=== PATIENT | male | born 1975 | race Caucasian/White ===

== ENCOUNTER 2016-11-08 10:31 | Inpatient (IN) | payer OTHER ==
[~2016-11-08] VITALS: Ht 182.9 cm; Wt 97.8 kg
[2016-11-08] VITALS (10 sets, daily range): BP systolic 128–169; BP diastolic 76–90; PULSE 58–97; RESP 12–18; O2SAT 97–100
[2016-11-08] MEDS ORDERED: Promethazine 25 mg/mL Inj ONE (10:56)
[2016-11-08] MEDS ORDERED: HYDROmorphone 1 mg/mL Inj IVPUSH ONE ×2 (11:15→11:50)
[2016-11-08 11:16] LABS: BASOPHILS % (AUTO) 0.4 % (0-3); EOSINOPHILS % (AUTO) 0.1 % (0-5); MONOCYTES % (AUTO) 4.4 % (4-12); Mean Corpuscular Volume 83.6 fL (81-100); NEUTROPHILS % (AUTO) 83.8 % (40-74); Platelet Count 325 bil/L (150-400)
--- NOTE | 2016-11-08 11:31 | ED.REPORT ---
HPI-Abd Pain M 40 and Over Date of Service Nov 08, 2016 ED Provider: Ronny Gunn MD Pt is a generally healthy 41 y/o male presenting to the ED c/o N/V onset 4 days ago. He c/o associated mild watery diarrhea, periumbilical abdominal pain/ pressure for 2 days, R-sided testicular pain. The patient had somewhat similar symptoms previously when he had cholecystitis and therefore he had a cholecystectomy. He denies recent out of country travel. Pt denies fever, chills , bloody stools, any other symptoms. He denies alcohol/drug history. Nursing Notes Stated Complaint: VOMITING/DIARRHEA Chief Complaint: Male Abdominal Pain Nursing Notes Reviewed: Yes Allergies: Coded Allergies: No Known Allergies (Unverified Allergy, Unknown, 11/08/16) No Active Prescriptions or Reported Meds General Time Seen by MD: 10:50 Chief Complaint Other (nvd) Hx Obtained From: Patient Arrived By: Walk-in Sudden in Onset?: No Onset Occurred: 4 days ago Symptom Duration: Since onset Progression since Onset: Constant Location: : Periumbilical Quality: Painful, Pressure Radiation: : Does not radiate Severity: Current: Moderate Severity: Maximum: Moderate Recent Healthcare: No recent doctor visit, No recent hospitalization Similar Sx Previous: Yes Past Medical History Past Medical History Scoliosis s/p surgical repair Past Surgical History Cholecystectomy Back surgery Family History Denies Smoking History Current Every Day Smoker, Light Tobacco Smoker Social History Alcohol Use: Denies alcohol use Drug Use: Denies drug use Ambulatory Status Independent Review of Systems Constitutional: Denies: Chills, Fever Respiratory: Denies: Non-productive cough, Shortness of breath Cardiovascular: Denies: Chest pain GI: Reports: Abdominal pain, Diarrhea, Nausea, Vomiting, Denies: Bloody/tarry stool Complete sys rev & neg: except as marked. Physical Exam Nursing note and vitals reviewed. Constitutional: Uncomfortable appearing young male lying in bed. All developed. Head: Normocephalic and atraumatic. Mouth/Throat: Oropharynx is clear. Mucous membranes dry. No oropharyngeal exudate. Eyes: EOM are normal. Pupils are equal, round, and reactive to light. Neck: Supple, no tracheal deviation. Cardiovascular: Normal rate, regular rhythm. Equal and intact distal pulses throughout. Pulmonary/Chest: Effort normal and breath sounds normal. No respiratory distress. Abdominal: Soft. No distension. Diffuse lower abdominal tenderness; no rebound or guarding. Bowel sounds present. : Testicles appear normal. No testicular tenderness. Cremasteric reflex intact. Musculoskeletal: Range of motion grossly intact, moving all extremities. No edema or tenderness appreciated. Neurological: AOx3. Grossly nonfocal exam. Strength and sensation intact and equal to bilateral upper and lower extremities. Skin: Warm and dry, no rashes or pallor appreciated. Psychiatric: Appropriate mood and affect. Behavior appears normal. Initial Vital Signs Vital Signs (First) Date Time Temp Pulse Resp B/P Pulse Ox O2 Delivery O2 Flow Rate FiO2 11/08/16 10:40 69 12 143/84 99 Room Air Initial VS: Reviewed, Vital signs normal Interpretation & Diagnostics Interpretation & Diagnostics: US testicular: IMPRESSION: 1. No visualized torsion at the time of examination. Intermittent torsion cannot be definitively excluded. 2. No visualized epididymitis. Dictated by: Marissa Stacy M.D. on 11/08/2016 at 16:49 Approved by: Marissa Stacy M.D. on 11/08/2016 at 16:50 Lab Results Interpretation Result Diagram: 11/10/16 1018 11/09/16 0920 Test 11/08/16 11:00 11/08/16 11:57 11/08/16 12:49 Magnesium Level 2.3mg/dL (1.6-2.6) Total Bilirubin 0.5mg/dL (0.0-1.2) Aspartate Amino Transf (AST/SGOT) 19U/L (0-50) Alanine Aminotransferase (ALT/SGPT) 22U/L (0-44) Alkaline Phosphatase 65U/L (25-150) Total Protein 6.9g/dL (6.4-8.4) Albumin 4.2g/dL (3.4-5.0) Lipase 28U/L (13-60) Urine Color Yellow (YELLOW) Urine Appearance Clear (CLEAR,HAZY) Urine pH 7.5 (5.0-8.0) Urine Specific [place] 1.020 (1.003-1.035) Urine Protein Negativemg/dL (NEG,TRACE) Urine Glucose (UA) Negativemg/dL (NEGATIVE) Urine Ketones Negativemg/dL (NEGATIVE) Urine Occult Blood Negative (NEGATIVE) Urine Nitrite Negative (NEGATIVE) Urine Bilirubin Negative (NEGATIVE) Urine Urobilinogen Normalmg/dL (NORMAL) Urine Leukocyte Esterase Negative (NEGATIVE) Urine RBC 0-2/hpf (0-2) Urine WBC 0-5/hpf (0-5) Urine Epithelial Cells Few/hpf (NONE-MOD) Urine Crystals Amorphous phosphates Urine Bacteria None/hpf (NONE-FEW) Urine Hyaline Casts None/lpf (NONE) Urine Granular Casts None seen (NONE SEEN) Urine Waxy Casts None seen (NONE SEEN) Urine Red Blood Cell Casts None seen (NONE SEEN) Urine White Blood Cell Casts None seen (NONE SEEN) Urine Mucus None seen (None Seen) Urine Trichomonas None seen (NONE SEEN) Urine Yeast None (NONE SEEN) Urinalysis Comment None Urine Culture Reflexed Not indicated Lactic Acid Level 1.0mmol/L (0.4-2.0) CT Abd / Pelvis Interpretation IMPRESSION: 1. No acute intra-abdominal or pelvic process. 2. Hepatic steatosis. 3. Cholecystectomy. Dictated by: Marissa Stacy M.D. on 11/08/2016 at 13:41 Approved by: Marissa Stacy M.D. on 11/08/2016 at 13:43 Study type: Abdominal CT IV contrast Interpretation / Wet Read by: Interpret - Radiologist Re-Eval/Medical Decision Med Decision/Clinical Course In summary, 41-year-old male presenting to the ED for evaluation of intractable nausea and vomiting over the past several days associated with lower abdominal pain. Differential is broad and includes appendicitis, small bowel obstruction , gastroenteritis, testicular torsion, etc. Also considered cannabis hyperemesis syndrome, however patient states that he does not use cannabis. Initial laboratory workup notable for a white blood cell count of 10.8 with 83% neutrophils, CMP grossly within normal limits, UA negative. Testicular ultrasound negative for torsion at the time of the examination. CT abdomen and pelvis demonstrates no acute intra-abdominal or pelvic process. Patient given multiple medications in an attempt to alleviate his intractable vomiting, including Zofran, Ativan, Phenergan. Also given Dilaudid and low-dose, subdissociative ketamine for his pain. Reassessed multiple times here in the emergency department with no improvement in his symptoms and he is unable to tolerate by mouth. Given this, as well as no clear etiology for his symptoms, plan admission for further evaluation and management. Patient agreeable with the plan as stated, no further questions. Time of Eval: 15:00 Re-Evaluation/Progress Note: Still vomiting. Time of Eval: 16:57 Re-Evaluation/Progress Note: Pt rechecked. Nausea and vomiting continues. Informed pt of need for admission. Pt understands and agrees with plan for admission. All questions addressed. Consultation : Referral / Consult Name: Luisito Gipson MD Consulted With: Hospitalist Call Returned at: 17:12 Garage Attendant: Will see patient, Agrees with eval, Agrees with plan, Accepts admit Counseled Regarding: Diagnosis, Lab results, Need for admission Discharge & Departure Primary Impression: Intractable nausea and vomiting Vomiting type: unspecified Qualified Code: R11.2 - Nausea with vomiting, unspecified Disposition: ADMITTED TO HOSPITAL Vital Signs - All Vital Signs Date Time Temp Pulse Resp B/P Pulse Ox O2 Delivery O2 Flow Rate FiO2 11/08/16 13:29 97 14 97 Room Air 11/08/16 13:22 71 14 149/76 97 Room Air 11/08/16 12:04 67 12 128/78 99 Room Air 11/08/16 10:40 69 12 143/84 99 Room Air )( All Prior VS Reviewed: Yes Condition: Stable Referrals: Josias Joseph MD (PCP) Scribe Attestation Portions of this note were transcribed by Sadi Alves. I, Dr. Gunn personally performed the history, physical exam and medical decision-making; I reviewed and confirmed the accuracy of the information in the transcribed note. Signed by Raisa English, 11/08/16 - 1200 copies to: Josias Joseph MD, William B MD Nov 08, 2016 11:31 SADI ALVES Nov 08, 2016 11:33 None seen (NONE SEEN) Urine Yeast None (NONE SEEN) Urinalysis Comment None Urine Culture Reflexed Not indicated Lactic Acid Level 1.0mmol/L (0.4-2.0) CT Abd / Pelvis Interpretation IMPRESSION: 1. No acute intra-abdominal or pelvic process. 2. Hepatic steatosis. 3. Cholecystectomy. Dictated by: Marissa Stacy M.D. on 11/08/2016 at 13:41 Approved by: Marissa Stacy M.D. on 11/08/2016 at 13:43 Study type: Abdominal CT IV contrast Interpretation / Wet Read by: Interpret - Radiologist Re-Eval/Medical Decision Med Decision/Clinical Course Urine drug screen positive for: methamphetamine, opiates CBC: WBC 10.8 with 83% neutrophils CMP: grossly WNL UA: negative Testicular US: IMPRESSION: 1. No visualized torsion at the time of examination. Intermittent torsion cannot be definitively excluded. 2. No visualized epididymitis. CT abd/pelvis: IMPRESSION: 1. No acute intra-abdominal or pelvic process. 2. Hepatic steatosis. 3. Cholecystectomy. Time of Eval: 15:00 Re-Evaluation/Progress Note: Still vomiting. Time of Eval: 16:57 Re-Evaluation/Progress Note: Pt rechecked. Nausea and vomiting continues. Informed pt of need for admission. Pt understands and agrees with plan for admission. All questions addressed. Consultation : Referral / Consult Name: Luisito Gipson MD Consulted With: Hospitalist Call Returned at: 17:12 Garage Attendant: Will see patient, Agrees with eval, Agrees with plan, Accepts admit Counseled Regarding: Diagnosis, Lab results, Need for admission Discharge & Departure Primary Impression: Intractable nausea and vomiting Vomiting type: unspecified Qualified Code: R11.2 - Nausea with vomiting, unspecified Disposition: ADMITTED TO HOSPITAL Vital Signs - All Vital Signs Date Time Temp Pulse Resp B/P Pulse Ox O2 Delivery O2 Flow Rate FiO2 11/08/16 13:29 97 14 97 Room Air 11/08/16 13:22 71 14 149/76 97 Room Air 11/08/16 12:04 67 12 128/78 99 Room Air 11/08/16 10:40 69 12 143/84 99 Room Air )( All Prior VS Reviewed: Yes Condition: Stable Referrals: Josias Joseph MD (PCP) Raisa Attestation Portions of this note were transcribed by Sadi Alves. I, Dr. Gunn personally performed the history, physical exam and medical decision-making; I reviewed and confirmed the accuracy of the information in the transcribed note. Signed by Raisa English, 11/08/16 - 1200 copies to: Josias Joseph MD, William B MD Nov 08, 2016 11:31 SADI ALVES Nov 08, 2016 11:33
[2016-11-08] MEDS ORDERED: Lactated Ringer's 1,000 ML IV ONE (11:50)
[2016-11-08 11:53] LABS: Magnesium 2.3 mg/dL (1.6-2.6)
[2016-11-08 12:40] LABS: APPEARANCE,URINE CLEAR (CLEAR,HAZY); COLOR,URINE YELLOW (YELLOW); OCCULT BLOOD,URINE NEGATIVE (NEGATIVE); PH,URINE 7.5 (5.0-8.0); UROBILINOGEN,URINE NORMAL (NORMAL)
[2016-11-08] MEDS ORDERED: Ondansetron 2 mg/mL 2 mL Inj ONE (13:04)
[2016-11-08] MEDS ORDERED: Ketamine 10 mg/mL 20 mL Inj IV ONE (13:10)
--- NOTE | 2016-11-08 13:45 | DRSVH ---
PROCEDURE: CT ABDOMEN AND PELVIS WITH CONTRAST ([id number]) INDICATIONS: intractable vomiting, abd pain TECHNIQUE: After the administration of intravenous contrast, 5 mm thick sections acquired from the diaphragm to the symphysis. 5 mm coronal and sagittal reformats were acquired. For radiation dose reduction, the following was used: automated exposure control, adjustment of mA and/or kV according to patient siz e. COMPARISON: None. FINDINGS: Image quality: Excellent. ABDOMEN: Lung bases: Lung bases are clear. Heart size is normal. Solid organs: Liver and spleen are normal in size and enhancement. Mild hepatic steatosis is present . Gallbladder has been removed. Biliary system is non dilated. Pancreas enhances normally. No adr enal nodules. Kidneys demonstrate normal size and enhancement, without hydronephrosis. Peritoneum and bowel: Bowel loops demonstrate normal wall thickness and caliber. No free fluid or a ir. Nodes and vessels: No retroperitoneal or mesenteric adenopathy by size criteria. Aorta and inferior vena cava are normal in size. Miscellaneous: No ventral hernias. Mild hernia with distal esophageal thickening. Thoracolumbar fix ation rods are present. PELVIS: Genitourinary: Bladder wall thickness is normal. Miscellaneous: No inguinal hernias or adenopathy. Bones: No suspicious bony lesions. No vertebral body compression fractures. IMPRESSION: 1. No acute intra-abdominal or pelvic process. 2. Hepatic steatosis. 3. Cholecystectomy. Dictated by: Marissa Stacy M.D. on 11/08/2016 at 13:41 Approved by: Marissa Stacy M.D. on 11/08/2016 at 13:43
[2016-11-08] MEDS ORDERED: Promethazine Inj 12.5 MG in Dextrose 5%-Pha MIX 50 ML IV ONE (14:30)
--- NOTE | 2016-11-08 16:52 | DRSVH ---
PROCEDURE: US TESTICULAR SONOGRAM WITH DOPPLER INDICATIONS: eval torsion, epidydimitis, etc TECHNIQUE: Real-time scanning was performed of the scrotum and testicles, with image documentation. Color and p ulse Doppler interrogation was performed of both testicles. COMPARISON: None. FINDINGS: Right: Testicle is normal in size at 2.0 x 3.8 x 4.7 cm, and homogenous in echotexture. Epididymis is normal in overall size and morphology. No hydrocele or varicoceles. Overlying scrotal skin is no rmal in thickness. Left: Testicle is normal in size at 2.5 x 4.0 x 1.6 cm, and homogeneous in echotexture. Epididymis is normal in overall size and morphology. No hydrocele or varicoceles. Overlying scrotal skin is no rmal in thickness. Doppler: Color and pulse Doppler demonstrate normal and symmetric arterial flow in both testicles. IMPRESSION: 1. No visualized torsion at the time of examination. Intermittent torsion cannot be definitively excl uded. 2. No visualized epididymitis. Dictated by: Marissa Stacy M.D. on 11/08/2016 at 16:49 Approved by: Marissa Stacy M.D. on 11/08/2016 at 16:50
[2016-11-08] MEDS ORDERED: Polyethylene Glycol (PEG) 17 Gm Powder PO PRN (17:45)
[2016-11-08] MEDS ORDERED: 0.9% Sodium Chloride 1,000 ML IV ONE (17:45)
--- NOTE | 2016-11-08 19:25 | PCM.HPMED ---
Subjective Date of Service Nov 08, 2016 Primary Provider: Admitting Physician: Primary Care Physician: Josias Joseph MD Attending Physician: Chief Complaint: Nausea and vomiting History of Present Illness: Efrain Jimenez is a 41 year old man with past medical history significant for anxiety and chronic back pain who present to the [facility] ED due to nausea and vomiting that started 4 days ago. He denies any blood in his emesis however does note that it appears "bilious" in nature. He also noted intermittent watery diarrhea. He denies any sick contacts or any friends or family with similar symptoms. Patient denies any fever, chills, bloody stools, diaphoresis. Patient denies any recent travel. He noted that his pain is around his bellybutton. The patient has had a cholecystectomy already. He has not had an appendectomy. He also has had abdominal hernia repair. In the ED his vitals were stale but not able for BP of 169/88. He was given 1 L LR, 1 mg of Dilaudid, 10 mg of Ketamine and 2 mg of Ativan as well as promethazine without any change to his abdominal pain or vomiting. UDS was positive for methamphetamines and opiates. Review of Systems: A comprehensive review of systems was performed is negative except as noted above in the history of present illness. Allergies Coded Allergies: No Known Allergies (Unverified Allergy, Unknown, 11/08/16) Home Medications FriendEfrain [id number] 1975 08/23/2016 03:25 PM 1/ Start Date Medication Directions Stop Date 08/23/2016 hydrocodone 5 mg-acetaminophen 325 mg tablet take 1 tablet by oral route every 6 hours as needed for pain PMH Scoliosis Anxiety Surgical History Ventral hernia repair Cholecystectomy Family History Rheumatoid arthritis in his mother. Social History Hx Alcohol Use: No (denies) Hx Substance Use: No (denies) Hx Tobacco Use: Yes Smoking Status: Current Every Day Smoker, Light Tobacco Smoker Exam Vital Signs Vital Sign - Last Date Time Temp Pulse Resp B/P Pulse Ox O2 Delivery O2 Flow Rate FiO2 11/08/16 13:29 97 14 97 Room Air 11/08/16 13:22 149/76 Exam General: Appears in distress due to pain, well-developed, well-nourished, appropriately interactive HEENT: Normocephalic, atraumatic. External ears without defect. Pupils equal, round, and reactive to light and accommodation. Anicteric sclerae, moist conjunctivae, and no lid lag. Oropharynx free of erythema and cobble stoning with moist mucosa. Neck: Supple with full range of motion. No jugular venous distension. No bruits. No lymphadenopathy or thyromegaly. Cardiovascular: Regular rhythm with tachycardic rate with no murmurs, rubs, or gallops appreciated Pulmonary: Clear to auscultation bilaterally with no crackles, wheezes, or rhonchi. Normal respiratory effort with no use of accessory muscles. Abdomen: Bowel tones present. Soft, nontender, nondistended. No hepatosplenomegaly or masses appreciated. No tenderness to palpation with stethoscope. no inguinal hernia Extremities: No clubbing, cyanosis, edema, or lymphadenopathy appreciated. Skin: Normal temperature, turgor, and texture; no rash, ulcers, or subcutaneous nodules appreciated. Neurological: Cranial nerves grossly intact. Normal muscle strength, tone, and bulk. Reflexes, coordination, and sensory function within normal limits. No known gait impairment. Psychiatric: Normal mood and affect. Alert and oriented to person, place, and time. Lab and Diagnostics Result Diagram: 11/08/16 1100 11/08/16 1100 X-Rays, CTs and MRIs US TESTICULAR SONOGRAM WITH DOPPLER IMPRESSION: 1. No visualized torsion at the time of examination. Intermittent torsion cannot be definitively excluded. 2. No visualized epididymitis. Dictated by: Marissa Stacy M.D. on 11/08/2016 at 16:49 CT ABDOMEN AND PELVIS WITH CONTRAST IMPRESSION: 1. No acute intra-abdominal or pelvic process. 2. Hepatic steatosis. 3. Cholecystectomy Dictated by: Marissa Stacy M.D. on 11/08/2016 at 13:41 Assessment & Plan Efrain Jimenez is a 41 year old man with past medical history significant for anxiety and chronic back pain who present to the [facility] ED due to nausea and vomiting that started 4 days ago. # Intractable nausea and vomiting of unclear etiology, present on admission, active -Stool PCR ordered -IVF with NS @100 cc/hr -1 L NS bolus -Morphine for pain as needed. -Continue with Zofran -Appendicitis is ruled on with CT -Clear liquid diet CODE STATUS: FULL CODE Patient is admitted under observation status with expected length of stay less than 2 midnights due to severity of presenting symptoms, risk of adverse event, and complexity of treatment plan. VTE Prophylaxis: Sub-Q Heparin (Unfractionated) Resuscitation Status: CPR: Attempt Resuscitation Attending Statement The patient was seen and examined together with Dr. Peralta on 11/08 and I agree with the history, exam and plan as outlined in the note above. Mae Peralta DO Nov 08, 2016 17:25 Miguel Angel Everett MD Nov 09, 2016 00:25 Luisito Gipson MD Nov 09, 2016 11:03
[2016-11-08] MEDS: Ondansetron 2 mg/mL 2 mL Inj IVPUSH PRN (20:00)
[2016-11-08] MEDS: Alum-Mag Hydrox-Simeth 30 mL Suspension PO PRN (21:04)
[2016-11-08] MEDS: 0.9% Sodium Chloride 1,000 ML IV SCH (23:00)
[2016-11-09] VITALS (7 sets, daily range): BP systolic 141–170; BP diastolic 90–97; PULSE 71–104; RESP 16–18; O2SAT 98–100
[2016-11-09] MEDS: Ondansetron 2 mg/mL 2 mL Inj IVPUSH PRN ×6 (00:02→22:02)
[2016-11-09] MEDS: Heparin 5,000 Unit/mL Inj SUBQ SCH ×3 (01:08→17:25)
[2016-11-09] MEDS: 0.9% Sodium Chloride 1,000 ML IV SCH ×2 (09:12→21:46)
[2016-11-09 09:37] LABS: BASOPHILS % (AUTO) 0.1 % (0-3); EOSINOPHILS % (AUTO) 0.1 % (0-5); MONOCYTES % (AUTO) 6.7 % (4-12); Mean Corpuscular Hemoglobin 28.7 pg (27.0-35.0); Mean Corpuscular Volume 83.9 fL (81-100); NEUTROPHILS % (AUTO) 80.3 % (40-74); Platelet Count 296 bil/L (150-400)
--- NOTE | 2016-11-09 16:34 | PCM.PNMED ---
Subjective Date of Service Nov 09, 2016 Subjective Patient notes only slight improvement still feeling very nauseated with almost no appetite. Nominal pain still present and also slightly improved from admission but certainly not resolved. Exam Vital Signs Vital Sign - Last Date Time Temp Pulse Resp B/P Pulse Ox O2 Delivery O2 Flow Rate FiO2 11/09/16 13:17 36.9 104 16 141/95 98 Room Air Intake and Output 11/08/16 11/08/16 11/09/16 Cumulative From/Thru 15:00 23:00 07:00 11/08/16 10:40 - 11/09/16 06:30 Intake Total 2000 ml 2622 ml 4622 ml Output Total 400 ml 850 ml 2425 ml 3675 ml Balance 1600 ml -850 ml 197 ml 947 ml Intake Oral 946 ml 946 ml IV Total 2000 ml 1676 ml 3676 ml Output Urine Total 400 ml 850 ml 2000 ml 3250 ml Emesis 425 ml 425 ml # Voids 1 1 2 General: Alert, Oriented X3, Cooperative, Moderate Distress Mouth: Mucous Membranes Dry Chest & Lungs: Clear to auscultation & percussion Cardiovascular: Regular Rate/Rhythm Abdomen: Tender, Non-distended, Normoactive bowel tones Skin: Other (cyst of right hand does not appear infected.) Neurological: Grossly Neurologically Intact IVs and Medications Medications Reviewed: Medications were reviewed in detail Lab and Diagnostics Result Diagram: 11/09/1691911/09/16 0920 X-Rays, CTs and MRIs US TESTICULAR SONOGRAM WITH DOPPLER IMPRESSION: 1. No visualized torsion at the time of examination. Intermittent torsion cannot be definitively excluded. 2. No visualized epididymitis. Dictated by: Marissa Stacy M.D. on 11/08/2016 at 16:49 CT ABDOMEN AND PELVIS WITH CONTRAST IMPRESSION: 1. No acute intra-abdominal or pelvic process. 2. Hepatic steatosis. 3. Cholecystectomy Dictated by: Marissa Stacy M.D. on 11/08/2016 at 13:41 Assessment & Plan Efrain Friend is a 41 year old man with past medical history significant for anxiety and chronic back pain who present to the [facility] ED due to nausea and vomiting that started 4 days ago. # Intractable nausea and vomiting of unclear etiology, present on admission, active -Stool PCR ordered, sample still pending -Continue IVF with NS @100 cc/hr while diet is advanced -1 L NS bolus -Morphine for pain as needed, to be transitioned to oral pain medications with improved by mouth intake -Continue with Zofran -Appendicitis is ruled on with CT -Clear liquid diet, to be advanced as tolerated. #Cyst of hand - chronic condition involving cyst of tendon appears most likely - consider imaging studies if painful, - continue observation. CODE STATUS: FULL CODE Patient is admitted under observation status with expected length of stay less than 2 midnights due to severity of presenting symptoms, risk of adverse event, and complexity of treatment plan. Pain Evaluation: Adequate Pain Control VTE Prophylaxis: Sub-Q Heparin (Unfractionated) VTE Mechanical Devices: Venous Foot Pump Resuscitation Status: CPR: Attempt Resuscitation Time spent 25 minutes Jacques Davey DO Nov 09, 2016 16:34
[2016-11-09] MEDS: HYDROcodone-APAP 5-325 mg Tablet PO PRN ×2 (18:04→22:13)
[2016-11-09] MEDS: Alum-Mag Hydrox-Simeth 30 mL Suspension PO PRN (20:58)
[2016-11-10] VITALS (11 sets, daily range): BP systolic 121–180; BP diastolic 76–114; PULSE 80–110; RESP 16–18; O2SAT 95–99
[2016-11-10] MEDS: Heparin 5,000 Unit/mL Inj SUBQ SCH ×3 (00:22→16:52)
[2016-11-10] MEDS: Alum-Mag Hydrox-Simeth 30 mL Suspension PO PRN ×3 (02:28→21:17)
[2016-11-10] MEDS: HYDROcodone-APAP 5-325 mg Tablet PO PRN ×5 (02:30→21:18)
[2016-11-10] MEDS: Ondansetron 2 mg/mL 2 mL Inj IVPUSH PRN ×3 (08:06→21:06)
[2016-11-10 10:29] LABS: BASOPHILS % (AUTO) 0.4 % (0-3); EOSINOPHILS % (AUTO) 0.3 % (0-5); MONOCYTES % (AUTO) 8.2 % (4-12); Mean Corpuscular Hemoglobin 28.6 pg (27.0-35.0); Mean Corpuscular Volume 82.5 fL (81-100); NEUTROPHILS % (AUTO) 70.6 % (40-74); Platelet Count 299 bil/L (150-400)
[2016-11-10] MEDS: 0.9% Sodium Chloride 1,000 ML IV SCH (11:23)
--- NOTE | 2016-11-10 13:00 | PCM.PNMED ---
Subjective Date of Service Nov 10, 2016 Subjective Patient continues to experience significant abdominal pain, he notes have not changed much since yesterday. Abdominal pain worsened overnight and this morning he was unable to tolerate much breakfast. Pain is in adequate control with current when necessary medications. Exam Vital Signs Vital Sign - Last Date Time Temp Pulse Resp B/P Pulse Ox O2 Delivery O2 Flow Rate FiO2 11/10/16 11:07 80 11/10/16 10:18 36.8 18 133/76 97 Room Air Intake and Output 11/09/16 11/09/16 11/10/16 Cumulative From/Thru 15:00 23:00 07:00 11/08/16 10:40 - 11/10/16 06:20 Intake Total 2073 ml 2305 ml 9000 ml Output Total 2700 ml 1025 ml 7400 ml Balance -627 ml 1280 ml 1600 ml Intake Oral 1012 ml 1419 ml 3377 ml IV Total 1061 ml 886 ml 5623 ml Output Urine Total 2700 ml 1025 ml 6975 ml Emesis 425 ml # Voids 2 # Bowel Movements 1 1 Exam General: Alert, Oriented X3, Cooperative, Moderate Distress Mouth: Mucous Membranes Dry Chest & Lungs: Clear to auscultation & percussion Cardiovascular: Regular Rate/Rhythm Abdomen: Tender, Non-distended, Normoactive bowel tones Skin: Cyst of right hand does not appear infected. Neurological: Grossly Neurologically Intact IVs and Medications Medications Reviewed: Medications were reviewed in detail Lab and Diagnostics Result Diagram: 11/10/16 1018 11/09/16 0920 X-Rays, CTs and MRIs US TESTICULAR SONOGRAM WITH DOPPLER IMPRESSION: 1. No visualized torsion at the time of examination. Intermittent torsion cannot be definitively excluded. 2. No visualized epididymitis. Dictated by: Marissa Stacy M.D. on 11/08/2016 at 16:49 CT ABDOMEN AND PELVIS WITH CONTRAST IMPRESSION: 1. No acute intra-abdominal or pelvic process. 2. Hepatic steatosis. 3. Cholecystectomy Dictated by: Marissa Stacy M.D. on 11/08/2016 at 13:41 Assessment & Plan Efrain Jimenez is a 41 year old man with past medical history significant for anxiety and chronic back pain who present to the [facility] ED due to nausea and vomiting that started 4 days ago. # Intractable nausea and vomiting of unclear etiology, present on admission, active #C. Diff colitis -Stool PCR ordered, supporting DX of antibiotic associated diarrhea -Continue IVF with NS @75 cc/hr while diet is advanced, antiemetics PRN also RX' d -Given adequate PO intake, will continue oral opiate pain medication agents, still demonstrating good effect. -Appendicitis is ruled on with CT -Diet had been effectively advanced to full with dinner, pt has some difficulty eating breakfast, may reconsider downgrading diet if solid foods continue to cause nausea. #Cyst of hand - Chronic condition involving cyst of tendon appears most likely - consider imaging studies if painful, - continue observation. - Out-patient evaluation would be more appropriate without acute changes. CODE STATUS: FULL CODE Patient is admitted under observation status but transitioned to in patient given poor ability to tolerate adequate PO intake, specifically hydration and DX of C. Diff colitis. Expected length of stay now more than 2 midnights due to severity of current symptoms Pain Evaluation: Adequate Pain Control VTE Prophylaxis: Sub-Q Heparin (Unfractionated) VTE Mechanical Devices: Venous Foot Pump Resuscitation Status: CPR: Attempt Resuscitation Time spent 30 minutes Jacques Davey DO Nov 10, 2016 12:59
[2016-11-10] MEDS: Vancomycin 100 mg/mL Oral Solution PO SCH ×2 (14:45→21:53)
[2016-11-10] MEDS: Ketorolac 15 mg/mL Inj IVPUSH PRN (21:53)
[2016-11-11 00:26] VITALS: BP 148/102; PULSE 99; RESP 18; O2SAT 98
[2016-11-11] MEDS: Heparin 5,000 Unit/mL Inj SUBQ SCH ×4 (00:28→23:48)
[2016-11-11] MEDS: 0.9% Sodium Chloride 1,000 ML IV SCH ×2 (01:07→13:57)
[2016-11-11] MEDS: Vancomycin 100 mg/mL Oral Solution PO SCH ×4 (03:03→21:18)
[2016-11-11] MEDS: HYDROcodone-APAP 5-325 mg Tablet PO PRN ×4 (03:09→19:47)
[2016-11-11 04:52] VITALS: BP 153/98; PULSE 102; RESP 18; O2SAT 97
[2016-11-11] MEDS: Ondansetron 2 mg/mL 2 mL Inj IVPUSH PRN (08:20)
[2016-11-11 09:10] LABS: BASOPHILS % (AUTO) 0.4 % (0-3); EOSINOPHILS % (AUTO) 0.3 % (0-5); MONOCYTES % (AUTO) 7.8 % (4-12); Mean Corpuscular Hemoglobin 28.8 pg (27.0-35.0); Mean Corpuscular Volume 83.9 fL (81-100); NEUTROPHILS % (AUTO) 72.1 % (40-74); Platelet Count 277 bil/L (150-400)
[2016-11-11] MEDS: Alum-Mag Hydrox-Simeth 30 mL Suspension PO PRN (15:32)
[2016-11-11] MEDS: Ketorolac 15 mg/mL Inj IVPUSH PRN (15:45)
--- NOTE | 2016-11-11 15:57 | PCM.PNMED ---
Subjective Date of Service Nov 11, 2016 Subjective Pt continues to endorse intermittent nausea, vomited dinner last night, poor appetite this morning for breakfast. Abdomen tender, pain is colicy. Diarrhea, improved, only 3 stools since yesterday afternoon, still look. Denies fever/ chills currently. Still feeling weak, not himself, hard time pushing oral fluids due again to nausea. Exam Vital Signs Vital Sign - Last Date Time Temp Pulse Resp B/P Pulse Ox O2 Delivery O2 Flow Rate FiO2 11/11/16 04:52 37.0 102 18 153/98 97 Room Air Intake and Output 11/10/16 11/10/16 11/11/16 Cumulative From/Thru 15:00 23:00 07:00 11/08/16 10:40 - 11/11/16 06:17 Intake Total 3110 ml 1182 ml 20334 ml Output Total 1690 ml 850 ml 9940 ml Balance 1420 ml 332 ml 3352 ml Intake Oral 2245 ml 1182 ml 6804 ml IV Total 865 ml 6488 ml Output Urine Total 1640 ml 850 ml 9465 ml Emesis 50 ml 475 ml # Voids 2 1 5 # Bowel Movements 3 4 Exam General: Alert, Oriented X3, Cooperative, Moderate Distress Mouth: Mucous Membranes Dry Chest & Lungs: Clear to auscultation & percussion Cardiovascular: Regular Rate/Rhythm Abdomen: Tender, Non-distended, Normoactive bowel tones Skin: Cyst of right hand does not appear infected. Neurological: Grossly Neurologically Intact IVs and Medications Medications Reviewed: Medications were reviewed in detail Lab and Diagnostics Result Diagram: 11/11/16 0855 11/11/16 0855 X-Rays, CTs and MRIs US TESTICULAR SONOGRAM WITH DOPPLER IMPRESSION: 1. No visualized torsion at the time of examination. Intermittent torsion cannot be definitively excluded. 2. No visualized epididymitis. Dictated by: Marissa Stacy M.D. on 11/08/2016 at 16:49 CT ABDOMEN AND PELVIS WITH CONTRAST IMPRESSION: 1. No acute intra-abdominal or pelvic process. 2. Hepatic steatosis. 3. Cholecystectomy Dictated by: Marissa Stacy M.D. on 11/08/2016 at 13:41 Assessment & Plan Efrain Friend is a 41 year old man with past medical history significant for anxiety and chronic back pain who present to the [facility] ED due to nausea and vomiting that started 4 days ago. # Intractable nausea and vomiting of unclear etiology, present on admission, active #C. Diff colitis #Leukocytosis -Stool PCR ordered, supporting DX of antibiotic associated diarrhea -Continue IVF with NS increased to 100 cc/hr given poor PO intake, diffculty pushing fluids, acute infection, and elevated pulse which may suggest volume depletion. - Given necessity of agressive nausea control to allow for oral antiboitic therapy to colitis, continued hospitalization is indicated. -Appendicitis is ruled on with CT -Diet had been effectively advanced to full with dinner however this resulted in emesis. Emphasis fluids over solid food, continue to advance as pt able to tolerate. #Cyst of hand - Chronic condition involving cyst of tendon appears most likely - consider imaging studies if painful, - continue observation. - Out-patient evaluation would be more appropriate without acute changes. CODE STATUS: FULL CODE Patient transitioned to in patient given poor ability to tolerate adequate PO intake, specifically hydration and DX of C. Diff colitis. Expected length of stay now more than 2 midnights due to severity of current symptoms Pain Evaluation: Adequate Pain Control VTE Prophylaxis: Sub-Q Heparin (Unfractionated) VTE Mechanical Devices: Venous Foot Pump Resuscitation Status: CPR: Attempt Resuscitation Time spent 25 minutes Jacques Davey DO Nov 11, 2016 15:57
[2016-11-11 18:45] VITALS: BP 140/95; PULSE 113; RESP 18; O2SAT 98
[2016-11-11 21:22] VITALS: BP 124/77; PULSE 128; RESP 18; O2SAT 98
[2016-11-12] MEDS: Vancomycin 100 mg/mL Oral Solution PO SCH ×2 (03:13→08:04)
[2016-11-12] MEDS: HYDROcodone-APAP 5-325 mg Tablet PO PRN ×2 (03:16→08:04)
[2016-11-12 04:57] VITALS: BP 133/93; PULSE 105; RESP 18; O2SAT 98
[2016-11-12] MEDS: Heparin 5,000 Unit/mL Inj SUBQ SCH (08:03)
[2016-11-12] MEDS: Ondansetron 2 mg/mL 2 mL Inj IVPUSH PRN (08:10)
--- NOTE | 2016-11-12 11:56 | PCM.DC.MED ---
Discharge Summary Date of Service Nov 12, 2016 Dates of Hospitalization Date of Hospital Admission Nov 08, 2016 at 17:48 Date of Discharge: Nov 12, 2016 Providers: Admitting Physician: Miguel Angel Everett MD Primary Care Physician: Josias Joseph MD Attending Physician: Jacques Davey DO Diagnosis at Time of Discharge Diagnosis at Time of Discharge C. Diff colitis , improving Intractable nausea and vomiting, improving Abdominal pain, severe, improving. Procedures XRay, CTs & MRIs US TESTICULAR SONOGRAM WITH DOPPLER IMPRESSION: 1. No visualized torsion at the time of examination. Intermittent torsion cannot be definitively excluded. 2. No visualized epididymitis. Dictated by: Marissa Stacy M.D. on 11/08/2016 at 16:49 CT ABDOMEN AND PELVIS WITH CONTRAST IMPRESSION: 1. No acute intra-abdominal or pelvic process. 2. Hepatic steatosis. 3. Cholecystectomy Dictated by: Marissa Stacy M.D. on 11/08/2016 at 13:41 Brief History As per HPI by admitting physician, "Efrain Jimenez is a 41 year old man with past medical history significant for anxiety and chronic back pain who present to the [facility] ED due to nausea and vomiting that started 4 days ago. He denies any blood in his emesis however does note that it appears "bilious" in nature. He also noted intermittent watery diarrhea. He denies any sick contacts or any friends or family with similar symptoms. Patient denies any fever, chills, bloody stools, diaphoresis. Patient denies any recent travel. He noted that his pain is around his bellybutton. The patient has had a cholecystectomy already. He has not had an appendectomy. He also has had abdominal hernia repair. In the ED his vitals were stale but not able for BP of 169/88. He was given 1 L LR, 1 mg of Dilaudid, 10 mg of Ketamine and 2 mg of Ativan as well as promethazine without any change to his abdominal pain or vomiting. UDS was positive for methamphetamines and opiates. " Hospital Course # Intractable nausea and vomiting of unclear etiology, present on admission, active #C. Diff colitis #Leukocytosis -Stool PCR ordered, supporting DX of antibiotic associated diarrhea -Continue IVF with NS increased to 100 cc/hr given poor PO intake, diffculty pushing fluids, as nausea resolved, appetite improved, IVFs discontinued day prior to discharge. -Appendicitis is ruled on with CT Discharged home in improving condition with 10 days of oral vancomycin prescribed to complete course of therapy. Antiemetic medications also RX'd Pt encouraged to push oral fluids. #Cyst of hand - Chronic condition involving cyst of tendon appears most likely - Out-patient evaluation recommended. Exam Vital Signs (Last) Date Time Temp Pulse Resp B/P Pulse Ox O2 Delivery O2 Flow Rate FiO2 11/12/16 04:57 36.9 105 18 133/93 98 Room Air Exam General: Alert, Oriented X3, Cooperative, No acute Distress, improved Mouth: Mucous Membranes Dry Chest & Lungs: Clear to auscultation & percussion Cardiovascular: Regular Rate/Rhythm Abdomen: Tender, Non-distended, Normoactive bowel tones Skin: Cyst of right hand does not appear infected. Neurological: Grossly Neurologically Intact Test 11/08/16 11:00 11/08/16 11:57 11/08/16 12:49 11/11/16 08:55 Magnesium Level 2.3mg/dL (1.6-2.6) Total Bilirubin 0.5mg/dL (0.0-1.2) Aspartate Amino Transf (AST/SGOT) 19U/L (0-50) Alanine Aminotransferase (ALT/SGPT) 22U/L (0-44) Alkaline Phosphatase 65U/L (25-150) Total Protein 6.9g/dL (6.4-8.4) Albumin 4.2g/dL (3.4-5.0) Lipase 28U/L (13-60) Urine Color Yellow (YELLOW) Urine Appearance Clear (CLEAR,HAZY) Urine pH 7.5 (5.0-8.0) Urine Specific [place] 1.020 (1.003-1.035) Urine Protein Negativemg/dL (NEG,TRACE) Urine Glucose (UA) Negativemg/dL (NEGATIVE) Urine Ketones Negativemg/dL (NEGATIVE) Urine Occult Blood Negative (NEGATIVE) Urine Nitrite Negative (NEGATIVE) Urine Bilirubin Negative (NEGATIVE) Urine Urobilinogen Normalmg/dL (NORMAL) Urine Leukocyte Esterase Negative (NEGATIVE) Urine RBC 0-2/hpf (0-2) Urine WBC 0-5/hpf (0-5) Urine Epithelial Cells Few/hpf (NONE-MOD) Urine Crystals Amorphous phosphates Urine Bacteria None/hpf (NONE-FEW) Urine Hyaline Casts None/lpf (NONE) Urine Granular Casts None seen (NONE SEEN) Urine Waxy Casts None seen (NONE SEEN) Urine Red Blood Cell Casts None seen (NONE SEEN) Urine White Blood Cell Casts None seen (NONE SEEN) Urine Mucus None seen (None Seen) Urine Trichomonas None seen (NONE SEEN) Urine Yeast None (NONE SEEN) Urinalysis Comment None Urine Culture Reflexed Not indicated Lactic Acid Level 1.0mmol/L (0.4-2.0) White Blood Count 12.2th/mm3 (3.8-10.1) Red Blood Count 5.34mil/mm3 (4.40-5.80) Hemoglobin 15.4g/dL (13.8-17.2) Hematocrit 44.8% (41.0-50.0) Mean Corpuscular Volume 83.9fL (81-100) Mean Corpuscular Hemoglobin 28.8pg (27.0-35.0) Mean Corpuscular Hemoglobin Concent 34.4% (32.0-37.0) Red Cell Distribution Width 13.4% (12.3-15.4) Platelet Count 277bil/L (150-400) Neutrophils (%) (Auto) 72.1% (40-74) Lymphocytes (%) (Auto) 19.0% (14-46) Monocytes (%) (Auto) 7.8% (4-12) Eosinophils (%) (Auto) 0.3% (0-5) Basophils (%) (Auto) 0.4% (0-3) Sodium Level 140mEq/L (134-144) Potassium Level 4.4mEq/L (3.5-5.2) Chloride Level 101mEq/L (97-108) Carbon Dioxide Level 23mmol/L (18-29) Blood Urea Nitrogen 8mg/dL (6-24) Creatinine 1.00mg/dL (0.76-1.27) Estimat Glomerular Filtration Rate 88mL/min (>59) Glucose Level 129mg/dL (60-99) Calcium Level 9.1mg/dL (8.5-10.1) Discharge Medications No Active Prescriptions or Reported Meds Followup Plan Disposition: Home Follow-up plan Continue medications as prescribed Push oral fluid/hydrate as tolerated. Follow up with your primary care physician in 1 week following discharge for further evaluation. Discharge Diet: No restrictions Discharge Activity: No restrictions Follow-up Provider: Josias Joseph MD Follow-up with PCP in: 1 week Time spent 40 minutes copies to: Josias Joseph MD, Benjamin P DO Nov 12, 2016 11:55
[2016-11-12] MEDS ORDERED: VANC125C10 PO (11:59)
[2016-11-12] MEDS ORDERED: ONDA4TAB9 PO (11:59)
--- NOTE | 2016-11-12 12:00 | PCM.DIMED ---
Discharge Instructions Date of Service Nov 12, 2016 Dates of Hospitalization Nov 08, 2016 at 17:48 Discharge Diagnosis Discharge Diagnosis C. Diff colitis , improving Intractable nausea and vomiting, improving Abdominal pain, severe, improving. Diet Discharge Diet: No restrictions Activity Discharge Activity: No restrictions Patient Instructions Patient Instructions See below Follow-up plan Continue medications as prescribed Push oral fluid/hydrate as tolerated. Follow up with your primary care physician in 1 week following discharge for further evaluation. Follow-up Provider: Josias Joseph MD Follow-up with PCP in: 1 week Jacques Davey DO Nov 12, 2016 12:00
== END 2016-11-12 13:03 | disposition home or self-care (01) | DRG 373 ==
LOC: SED 10:31 → EDBD 10:31 → EDUNIT# 10:31 → MPC 17:48 → OBSVTOIN 17:48
PROVIDERS: ADMIT Hospitalist; ATTEND Family Medicine
DX: A04.7 Enterocolitis due to Clostridium difficile (principal); F17.210 Nicotine dependence, cigarettes, uncomplicated

== ENCOUNTER 2016-11-26 17:56 | Emergency (ER) | payer OTHER ==
[~2016-11-26] VITALS: Ht 177.8 cm; Wt 101.4 kg
[~2016-11-26 17:56] MED LIST: ONDA4TAB9 PO; VANC125C10 PO
[2016-11-26 17:59] VITALS: BP 131/79; PULSE 108; RESP 22; O2SAT 99
--- NOTE | 2016-11-26 19:15 | DRSVH ---
PROCEDURE: X-RAY CHEST ONE VIEW, PORTABLE ([id number]) INDICATIONS: 41 year-old male with 4 days of leg swelling. TECHNIQUE: One view of the chest was acquired. COMPARISON: None. FINDINGS: Surgical changes and devices: Thoracic spine scoliosis fixation rods are present. Lungs and pleura: No pleural effusions or pneumothorax. Lungs are clear. Mediastinum: Mediastinal contours appear normal. Heart size is normal. Bones and chest wall: No suspicious bony lesions. Overlying soft tissues appear unremarkable. IMPRESSION: No acute cardiopulmonary disease. Dictated by: Juan Antonio M.D. on 11/26/2016 at 19:13 Approved by: Juan Antonio M.D. on 11/26/2016 at 19:13
[2016-11-26 19:21] LABS: BASOPHILS % (AUTO) 0.5 % (0-3); EOSINOPHILS % (AUTO) 1.1 % (0-5); MONOCYTES % (AUTO) 9.3 % (4-12); Mean Corpuscular Hemoglobin 29.1 pg (27.0-35.0); Mean Corpuscular Volume 86.3 fL (81-100); NEUTROPHILS % (AUTO) 66.2 % (40-74); Platelet Count 295 bil/L (150-400)
--- NOTE | 2016-11-26 19:43 | ED.REPORT ---
HPI-General Illness Date of Service Nov 26, 2016 ED Provider: Buzz Mason MD Patient is a 41 year old male who presents to the ED complaining of bilateral leg swelling onset 4 days ago. Associated symptoms include a non productive cough, some shortness of breath, dyspnea with exertion and insomnia. He reports that he's been waking up in the middle of the night short of breath. Patient denies chest pain. The patient states that his right leg is more swollen then the left. He first noticed the swelling after seeing little itchy bumps on his legs that he figured were mosquito bites. He reports he has been walking on them but they have become painful. Patient was recently hospitalized wt C. diff but reports he has finished his antibiotics and no longer has diarrhea. Nursing Notes Stated Complaint: BOTH LEGS AND FEET SWOLLEN, SENT BY Chief Complaint: Extremity Trauma Nursing Notes Reviewed: Yes Allergies: Coded Allergies: No Known Allergies (Unverified Allergy, Unknown, 11/26/16) Scheduled Furosemide (Furosemide) 20 Mg Tab 20 MG PO DAILY Potassium Chloride (Potassium Chloride) 20 Meq Tab.er.prt 20 MEQ PO DAILY TAKE WITH FOOD Vancomycin (Vancomycin) 125 Mg Capsule 125 MG PO QID Scheduled PRN Ondansetron ODT (Zofran ODT) 4 Mg Tablet 4 MG PO Q4H PRN PRN For Nausea General Time Seen by MD: 19:05 Chief Complaint Other (leg swelling) Hx Obtained From: Patient Arrived By: Walk-in Sudden in Onset?: Yes Onset Occurred: 4 days ago Symptom Duration: Since onset Location: : Leg left: Leg right Quality: Painful Severity: Current: Moderate Recent Healthcare: Recent doctor visit, Recent hospitalization Similar Sx Previous: No Past Medical History Past Medical History Scoliosis s/p surgical repair Past Surgical History Cholecystectomy Back surgery Family History Denies Smoking History Current Every Day Smoker, Light Tobacco Smoker Social History Alcohol Use: Denies alcohol use Drug Use: Denies drug use Ambulatory Status Independent Review of Systems Full Review of Systems Constitutional: Denies: Fatigue Respiratory: Reports: Dyspnea on exertion, Non-productive cough, Shortness of breath Cardiovascular: Denies: Chest pain GI: Denies: Diarrhea Musculoskeletal: Reports: Extremity pain, Extremity swelling Skin: Reports Itching, Denies Rash Psychiatric: Reports: Insomnia Complete sys rev & neg: except as marked. Physical Exam Vital Signs Vital Signs Date Time Temp Pulse Resp B/P Pulse Ox O2 Delivery O2 Flow Rate FiO2 11/26/16 21:34 93 15 127/90 98 Room Air 11/26/16 20:56 91 17 141/91 97 Room Air 11/26/16 20:15 96 19 137/92 98 Room Air 11/26/16 17:59 37.1 108 22 131/79 99 Room Air Initial VS: Reviewed General/Constitutional: Awake, Alert Head / Eyes: Atraumatic, Normocephalic, PERRL, EOMI Respiratory / Chest: Atraumatic, Breath sounds NL, Breath sounds = bilat, No respiratory distress Cardiovascular: Heart rate NL, Regular rhythm, Heart sounds NL, No gallop, No murmurs, No rubs mild JVD no hepatojugular reflux Abdomen: Atraumatic, Soft, BS normoactive LOWER EXTREMITIES: moderate edema bilateral lower extremities up to the knee pulses intact no discoloration no pitting Skin: Color NL, No rash, Warm, Dry Neurologic: Oriented X3, Speech NL, No motor deficits, No sensory deficits Psychiatric: Affect NL, Mood NL Interpretation & Diagnostics Lab Results Interpretation Result Diagram: 11/26/16190711/26/161907 Test 11/26/16 19:08 White Blood Count 8.4th/mm3 (3.8-10.1) Red Blood Count 4.68mil/mm3 (4.40-5.80) Hemoglobin 13.6g/dL (13.8-17.2) Hematocrit 40.4% (41.0-50.0) Mean Corpuscular Volume 86.3fL (81-100) Mean Corpuscular Hemoglobin 29.1pg (27.0-35.0) Mean Corpuscular Hemoglobin Concent 33.7% (32.0-37.0) Red Cell Distribution Width 13.8% (12.3-15.4) Platelet Count 295bil/L (150-400) Neutrophils (%) (Auto) 66.2% (40-74) Lymphocytes (%) (Auto) 22.8% (14-46) Monocytes (%) (Auto) 9.3% (4-12) Eosinophils (%) (Auto) 1.1% (0-5) Basophils (%) (Auto) 0.5% (0-3) D-Dimer < 0.50mg/L FEU (<0.50) Sodium Level 141mEq/L (134-144) Potassium Level 4.0mEq/L (3.5-5.2) Chloride Level 104mEq/L (97-108) Carbon Dioxide Level 25mmol/L (18-29) Blood Urea Nitrogen 15mg/dL (6-24) Creatinine 0.97mg/dL (0.76-1.27) Estimat Glomerular Filtration Rate 91mL/min (>59) Glucose Level 85mg/dL (60-99) Calcium Level 8.9mg/dL (8.5-10.1) Magnesium Level 2.3mg/dL (1.6-2.6) Total Bilirubin 0.4mg/dL (0.0-1.2) Aspartate Amino Transf (AST/SGOT) 16U/L (0-50) Alanine Aminotransferase (ALT/SGPT) 25U/L (0-44) Alkaline Phosphatase 62U/L (25-150) Troponin T < 0.010ug/L (0.0-0.011) Pro-B-Type Natriuretic Peptide 47.32pg/mL (0-86) Total Protein 6.2g/dL (6.4-8.4) Albumin 3.8g/dL (3.4-5.0) ECG Interpretation Time: 18:56 Interpreted by: ED physician Normal ECG Interpretation: Normal rate (99), Normal sinus rhythm X-Ray Chest Interpretation Chest Xray Interpretation: IMPRESSION: No acute cardiopulmonary disease. Dictated by: Juan Antonio M.D. on 11/26/2016 at 19:13 Approved by: Juan Antonio M.D. on 11/26/2016 at 19:13 Interpretation / Wet Read by: Interpret - Radiologist Re-Eval/Medical Decision Time of Eval: 21:05 Re-Evaluation/Progress Note: Discussed results and plan for discharge. Patient understands and agrees to plan. All questions were addressed. Counseled Regarding: Diagnosis, Lab results, Need for follow-up, When/why to return to ED Discharge & Departure Primary Impression: Leg swelling Disposition: Home Discharge Condition All VS Reviewed: Yes Condition: Stable Additional Instructions: ED evaluation included interview exam labs ECG chest x-ray and review of past records. We note edema in legs without an acute serious medical problem. Use furosemide (lasix) 20mg a day for 4 more doses. Take potassium supplement also. Follow your weights, take a furosemide if you notice a 5 pound wt gain over wt at end of initial furosemide treatment. Follow up with primary care soon. Return to ED for chest pain or shortness of breath. Limit salt in diet. Referrals: Josias Joseph MD (PCP) Katherineibbossman Attestation Portions of this note were transcribed by Licha Presley. I, Dr. Mason personally performed the history, physical exam and medical decision-making; I reviewed and confirmed the accuracy of the information in the transcribed note. Signed by:Raisa Monge, 11/26/16 copies to: Josias Joseph MD, Donald L MD Nov 26, 2016 19:43 Sarah Presley Nov 26, 2016 19:49
[2016-11-26] MEDS ORDERED: Furosemide 10 mg/mL 2 mL Inj IVPUSH ONE (19:45)
[2016-11-26 19:47] LABS: TROPONIN T < 0.010 ug/L (0.0-0.011)
[2016-11-26 19:57] LABS: Magnesium 2.3 mg/dL (1.6-2.6)
[2016-11-26] MEDS: Furosemide 10 mg/mL 4 mL Inj IVPUSH ONE ×2 (20:00→20:25)
[2016-11-26 20:15] VITALS: BP 137/92; PULSE 96; RESP 19; O2SAT 98
[2016-11-26 20:56] VITALS: BP 141/91; PULSE 91; RESP 17; O2SAT 97
[2016-11-26] MEDS ORDERED: FUR20 PO (21:13)
[2016-11-26] MEDS ORDERED: POTA20TA16 PO (21:13)
[2016-11-26 21:34] VITALS: BP 127/90; PULSE 93; RESP 15; O2SAT 98
== END 2016-11-26 21:36 | disposition home or self-care (01) ==
LOC: SED 17:56
DX: M79.89 Other specified soft tissue disorders (principal); F17.200 Nicotine dependence, unspecified, uncomplicated
CPT/HCPCS: 36415; 71010; 80053; 83735; 83880; 84484; 85025; 85378; 93005; 96374; 99285; J1940

== ENCOUNTER 2016-12-13 12:41 | Emergency (ER) | payer OTHER ==
[~2016-12-13] VITALS: Ht 182.9 cm; Wt 100.0 kg
[~2016-12-13 12:41] MED LIST changes: +FUR20 PO; +POTA20TA16 PO
[2016-12-13 12:45] VITALS: BP 139/84; PULSE 72; RESP 17; O2SAT 99
--- NOTE | 2016-12-13 13:26 | ED.REPORT ---
HPI-Chest Pain 40 and Over Date of Service Dec 13, 2016 ED Provider: Stoney Fung MD Nursing Notes Stated Complaint: CHEST PAIN/ SOB Chief Complaint: General Complaint Nursing Notes Reviewed: Yes ([employer] not reconciled) Allergies: Coded Allergies: No Known Allergies (Unverified Allergy, Unknown, 11/26/16) Scheduled Furosemide (Furosemide) 20 Mg Tab 20 MG PO DAILY Potassium Chloride (Potassium Chloride) 20 Meq Tab.er.prt 20 MEQ PO DAILY TAKE WITH FOOD Vancomycin (Vancomycin) 125 Mg Capsule 125 MG PO QID Scheduled PRN Ondansetron ODT (Zofran ODT) 4 Mg Tablet 4 MG PO Q4H PRN PRN For Nausea General Time Seen by MD: 13:22 Past Medical History Past Medical History Scoliosis s/p surgical repair Past Surgical History Cholecystectomy Back surgery Family History Denies Smoking History Current Every Day Smoker, Light Tobacco Smoker Social History Alcohol Use: Denies alcohol use Drug Use: Denies drug use Ambulatory Status Independent Physical Exam Initial Vital Signs Vital Signs (First) Date Time Temp Pulse Resp B/P Pulse Ox O2 Delivery O2 Flow Rate FiO2 12/13/16 12:45 36.7 72 17 139/84 99 Room Air Initial VS: Reviewed, Vital signs normal Re-Eval/Medical Decision Source of Hx: Old records Discharge & Departure Referrals: Josias Joseph MD (PCP) Stoney Fung MD Dec 13, 2016 13:26
--- NOTE | 2016-12-13 13:29 | ED.REPORT ---
HPI-Abd Pain M 40 and Over Date of Service Dec 13, 2016 ED Provider: Stoney Fung MD The pt is a 41 y/o male w/ a hx of a cholecystectomy presenting to the ED complaining of abdominal pain. He is also experiencing SOB, has had 20 episodes of vomiting since yesterday w/ some blood in his vomit, 5-6 episodes of diarrhea , and severe heart burn. Nothing makes the abdominal pain better or worse. Denies fevers. The pt finished his course of antibiotics he was taking for C-Diff roughly two weeks ago. He takes Zantac for his heart burn, last smoked marijuana last night , and last used methamphetamine 5 days ago. The pt was hospitalized 1 month ago for intractable nausea and vomiting. Nursing Notes Stated Complaint: CHEST PAIN/ SOB Chief Complaint: Abdominal pain Nursing Notes Reviewed: Yes ([facility] [employer] not reconciled) Allergies: Coded Allergies: No Known Allergies (Unverified Allergy, Unknown, 11/26/16) Scheduled Furosemide (Furosemide) 20 Mg Tab 20 MG PO DAILY Omeprazole (Omeprazole) 20 Mg Tablet.dr 20 MG PO BID Potassium Chloride (Potassium Chloride) 20 Meq Tab.er.prt 20 MEQ PO DAILY TAKE WITH FOOD Vancomycin (Vancomycin) 125 Mg Capsule 125 MG PO QID Scheduled PRN Hydrocodone-Acetaminophen 5-325 mg (Hydrocodone-Acetaminophen 5-325 mg) 1 Each Tablet 1 TABLET PO Q4H PRN PRN For Pain Ondansetron ODT (Zofran ODT) 4 Mg Tablet 4 MG PO Q4H PRN PRN For Nausea Ondansetron ODT (Ondansetron ODT) 8 Mg Tab.rapdis 8 MG PO Q4H PRN PRN For Nausea Promethazine (Promethazine) 25 Mg Tablet 25 MG PO Q6H PRN PRN For Nausea General Time Seen by MD: 13:22 Chief Complaint Abdominal pain Hx Obtained From: Patient, Spouse Arrived By: Walk-in Sudden in Onset?: Yes Symptom Duration: Since onset Recent Healthcare: Recent doctor visit, Recent hospitalization Similar Sx Previous: Yes Past Medical History Past Medical History Scoliosis s/p surgical repair Past Surgical History Cholecystectomy Back surgery Hernia surgery Family History Denies Smoking History Current Every Day Smoker, Light Tobacco Smoker Social History Pt reports smoking marijuana Alcohol Use: Denies alcohol use Drug Use: Meth Other Social History: Good social support Ambulatory Status Independent Review of Systems Heart burn Constitutional: Denies: Fever Respiratory: Reports: Shortness of breath GI: Reports: Abdominal pain, Diarrhea, Hematemesis, Nausea, Vomiting Complete sys rev & neg: except as marked. Physical Exam Initial Vital Signs Vital Signs (First) Date Time Temp Pulse Resp B/P Pulse Ox O2 Delivery O2 Flow Rate FiO2 12/13/16 12:45 36.7 72 17 139/84 99 Room Air Initial VS: Reviewed, Vital signs normal Head / Eyes: Atraumatic, Normocephalic, PERRL ENT: Mucous membranes moist, Conjunctiva normal, No scleral icterus Neck: Supple, Non-tender, Full range of motion Extremities: Vascular intact, Neuro intact, No swelling, No tenderness Skin: Warm, Dry, No cyanosis Neurologic: Alert, Oriented, Nonfocal Psychiatric: Mood/affect normal, Behavior normal, Normal thought content General/Constitutional: Awake, Alert Respiratory / Chest: Atraumatic, Breath sounds NL, Breath sounds = bilat Cardiovascular: Heart rate NL, Regular rhythm, Heart sounds NL Abdomen: Atraumatic, Soft, Non-tender Pt is nauseated and touching abdomen Back: Atraumatic, Full range of motion Interpretation & Diagnostics Lab Results Interpretation Result Diagram: 12/13/16 1318 12/13/16 1318 Test 12/13/16 13:18 White Blood Count 14.7th/mm3 (3.8-10.1) Red Blood Count 5.73mil/mm3 (4.40-5.80) Hemoglobin 16.3g/dL (13.8-17.2) Hematocrit 47.2% (41.0-50.0) Mean Corpuscular Volume 82.4fL (81-100) Mean Corpuscular Hemoglobin 28.4pg (27.0-35.0) Mean Corpuscular Hemoglobin Concent 34.5% (32.0-37.0) Red Cell Distribution Width 13.4% (12.3-15.4) Platelet Count 367bil/L (150-400) Neutrophils (%) (Auto) 83.0% (40-74) Lymphocytes (%) (Auto) 9.2% (14-46) Monocytes (%) (Auto) 7.5% (4-12) Eosinophils (%) (Auto) 0% (0-5) Basophils (%) (Auto) 0.1% (0-3) Sodium Level 141mEq/L (134-144) Potassium Level 3.4mEq/L (3.5-5.2) Chloride Level 96mEq/L (97-108) Carbon Dioxide Level 27mmol/L (18-29) Blood Urea Nitrogen 14mg/dL (6-24) Creatinine 0.92mg/dL (0.76-1.27) Estimat Glomerular Filtration Rate 97mL/min (>59) Glucose Level 130mg/dL (60-99) Calcium Level 10.7mg/dL (8.5-10.1) Total Bilirubin 0.6mg/dL (0.0-1.2) Aspartate Amino Transf (AST/SGOT) 20U/L (0-50) Alanine Aminotransferase (ALT/SGPT) 24U/L (0-44) Alkaline Phosphatase 83U/L (25-150) Total Protein 7.8g/dL (6.4-8.4) Albumin 4.7g/dL (3.4-5.0) Hold Rodrigues Top Tube Received (Received) Lab Results Interpretation: CBC positive leukocytosis CMP trace hypokalemic Re-Eval/Medical Decision Med Decision/Clinical Course His is a 41-year-old male presents with recurrent epigastric abdominal pain and heartburn associated with nausea vomiting periods occurring intermittently. He has had his gallbladder out symptoms have persisted. He has never had pancreatitis. No fevers. He has been taking OTC Pepcid/Zantac without relief. He has had an admission in October with a negative CT. He has never had endoscopy or seen GI. He has normal vitals, appears uncomfortable. His abdomen is clinically benign. Labs reveals moderate leukocytosis which is happened previously. He initially denied substance abuse, but a tox screen is positive for both THC and methamphetamines. This raises the possibility of cannabis hyperemesis syndrome, as discussed with the patient. The patient is receiving fluids, PPI, antiemetics and is improved. I am not finding indication of repeat CT imaging. I think the plan is to initiate PPI therapy, to refer to outpatient GI, initial supportive care, and discontinuation of recreational drugs. Patient is discharged in improved condition, and routine and return precautions reviewed Source of Hx: Old records Differential Diagnosis: Positive: Dyspepsia, Gastritis, Negative: Abdominal aortic aneurysm, Appendicitis, Bladder outlet obstruct, Contusion abdominal wall, Esophageal rupture, Gun shot wound abdomen, Peritonitis, Stab wound abdomen Counseled Regarding: Diagnosis, Lab results, Need for follow-up, When/why to return to ED Discharge & Departure Primary Impression: Gastritis Gastritis type: unspecified gastritis Chronicity: unspecified Gastritis bleeding: presence of bleeding unspecified Qualified Code: K29.70 - Gastritis , unspecified, without bleeding Additional Impressions: Substance abuse Nausea and vomiting Vomiting type: unspecified Vomiting Intractability: non-intractable Qualified Code: R11.2 - Nausea with vomiting, unspecified Disposition: Home Vital Signs - All Vital Signs Date Time Temp Pulse Resp B/P Pulse Ox O2 Delivery O2 Flow Rate FiO2 12/13/16 12:45 36.7 72 17 139/84 99 Room Air )( All Prior VS Reviewed: Yes Condition: Stable Additional Instructions: 1. Take the medication omeprazole 20mg twice a day. This is a stomach protective medication that works best - although it requires being taken daily and you should take for 3-5 days before you notice marked improvement. 2. In the meantime take ondansetron 8mg (let dissolve under the tongue) up to every 4 hours as needed for nausea. You may also take promethazine 25mg up to every 6 hours. 3. For the first few days you can take hydrocodone/APAP 5/325 1 tab up to every 6 hours if needed for pain. Note: This medication contains narcotic and does cause some drowsiness. No driving for at least 4 hours after taking 4. Stay away from Advil, Motrin, Aleve, ibuprofen-the class of medications called NSAIDS that can make these symptoms worse. 5. Stay away from recreational drugs which can also worsen these symptoms. 6. Call for an appointment with Dr. Eng (dispenser operator) Referrals: Josias Joseph MD (PCP) Scribe Attestation Portions of this note were transcribed by Alberto Thakur. I, Dr. Fung personally performed the history, physical exam and medical decision-making; I reviewed and confirmed the accuracy of the information in the transcribed note. copies to: Josias Joseph MD, Matthew F MD Dec 13, 2016 13:28 Alberto Thakur Dec 13, 2016 13:49
[2016-12-13] MEDS ORDERED: HYDROmorphone 0.5 mg/0.5 mL iSecure Syringe IVPUSH ONE (13:35)
[2016-12-13] MEDS ORDERED: Pantoprazole 4 mg/mL 10 mL Inj IVPUSH ONE (13:35)
[2016-12-13] MEDS ORDERED: Ondansetron 2 mg/mL 2 mL Inj IVPUSH ONE (13:35)
[2016-12-13 13:39] LABS: BASOPHILS % (AUTO) 0.1 % (0-3); EOSINOPHILS % (AUTO) 0 % (0-5); MONOCYTES % (AUTO) 7.5 % (4-12); Mean Corpuscular Hemoglobin 28.4 pg (27.0-35.0); Mean Corpuscular Volume 82.4 fL (81-100); Platelet Count 367 bil/L (150-400)
[2016-12-13] MEDS ORDERED: LidocaineVisc 2%:Antacid 1:1 10 mL Syringe PO ONE (13:40)
[2016-12-13] MEDS ORDERED: HYDR-4003 PO (15:07)
[2016-12-13] MEDS ORDERED: OMEP20TA86 PO (15:07)
[2016-12-13] MEDS ORDERED: ONDA8TAB10 PO (15:07)
[2016-12-13] MEDS ORDERED: PROM25TA14 PO (15:07)
[2016-12-13 15:27] VITALS: BP 138/80; PULSE 107; RESP 16; O2SAT 100
== END 2016-12-13 15:28 | disposition home or self-care (01) ==
LOC: SED 12:41
DX: K29.70 Gastritis, unspecified, without bleeding (principal); F19.10 Other psychoactive substance abuse, uncomplicated; F17.200 Nicotine dependence, unspecified, uncomplicated; Z90.49 Acquired absence of other specified parts of digestive tract
CPT/HCPCS: 36415; 80053; 85025; 96374; 96375; 99284; J1170; J2405; S0164

== ENCOUNTER → 2016-12-23 | Day surgery (SDC) | payer OTHER ==
[2016-12-23] VITALS (8 sets, daily range): BP systolic 104–139; BP diastolic 68–86; PULSE 68–85; RESP 12–16; O2SAT 95–100
[~2016-12-23] VITALS: Ht 177.8 cm; Wt 97.6 kg
[~2016-12-23] MED LIST changes: +Bupivacaine 0.5% 50 mL Inj INFILTRATE ONE; +CeFAZolin 2 Gm/50 mL D5W IV Premix IV SCH; +Dexamethasone 4 mg/mL Inj IVPUSH PRN; +Dexamethasone 4 mg/mL Inj ONE; +EPHEDrine Sulfate 50 mg/mL Inj IVPUSH PRN; -FUR20 PO; +HYDROmorphone 1 mg/mL Inj IVPUSH PRN; +Lactated Ringer's 1,000 ML IV ONE; +Lactated Ringer's 1,000 ML IV SCH; +Lactated Ringer's 500 ML IV PRN; +MetoCLOpramide 5 mg/mL 2 mL Inj IVPUSH PRN; -ONDA4TAB9 PO; +Ondansetron 2 mg/mL 2 mL Inj IVPUSH PRN; +Ondansetron 2 mg/mL 2 mL Inj ONE; -POTA20TA16 PO; +Phenylephrine 10,000 mCg/mL Inj IVPUSH PRN; +Propofol 10 mg/mL 20 mL Inj ONE; -VANC125C10 PO; +fentaNYL-PF 50 mCg/mL 2 mL Inj ONE; +oxyCODONE-Acetamin 5-325 mg Tablet PO PRN
--- NOTE | 2016-12-23 09:15 | PCM.HPANE ---
Patient Data Surgeon Admitting Provider: Attending Provider:Keith Gary MD Primary Care Physician:Josias Joseph MD Other Provider:Laurel Lang Anesthesia Reason for Visit Left Ring Finger Mass Ht/WT & BMI Height (Feet): 5 Height (Inches): 10 Weight (Kilograms): 101.15 Body Mass Index 31.00 Allergies Coded Allergies: No Known Allergies (Unverified Allergy, Unknown, 11/26/16) Past Anesthesia History Anesthesia History: Denies:: Anesthesia Reactions Diabetes History Hx Diabetes?: No MRSA MRSA: No Medications Hypertension Medication: No Home Meds Incl Beta Erwin: No Discontinued Scripts Promethazine 25 Mg [id number] Mg PO Q6H PRN For Nausea #20 TABLET Ref 1 Prov:Stoney Fung MD 12/13/16 Ondansetron ODT 8 Mg Tab.rapdis8 Mg PO Q4H PRN For Nausea #20 TABLET Prov:Stoney Fung MD 12/13/16 Hydrocodone-Acetaminophen 5-325 mg 1 Each Tablet1 Tablet PO Q4H PRN For Pain # 15 TABLET Ref 0 Prov:Stoney Fung MD 12/13/16 Omeprazole 20 Mg Tablet.dr20 Mg PO BID #60 TABLET Ref 3 Prov:Stoney Fung MD 12/13/16 Potassium Chloride 20 Meq Tab.er.prt20 Meq PO DAILY #30 TABLET Ref 0 TAKE WITH FOOD Prov:Buzz Mason MD 11/26/16 Furosemide 20 Mg Tab20 Mg PO DAILY #30 TABLET Ref 0 Prov:Buzz Mason MD 11/26/16 Ondansetron ODT (Zofran ODT)4 Mg Tablet4 Mg PO Q4H PRN For Nausea #20 TABLET Prov:Jacques Davey DO 11/12/16 Vancomycin 125 Mg [id number] Mg PO QID #40 CAPSULE Ref 0 Prov:Jacques Davey DO 11/12/16 History History of ENT Problems?: No HEENT History: Denies:: Abnormal Airway Denture Type: None Teeth Condition: Within Normal Limits Hx of Heart Problems?: Yes Cardiovascular History: Positive for:: Edema (lower extremity edema seen in ED 11/2016) Denies:: Congestive Heart Failure Hypertension Irregular Heartbeat Hx of Respiratory Problem?: No Respiratory History: Denies:: Oxygen Administration Tuberculosis Use of C-PAP Machine Hx Neurologic Problems?: No Neurological History: Denies:: Multiple Sclerosis Parkinson's Disease Seizures Hx of GI Problems?: Yes Other GI Pertinent History: inpt admission here October 2016- intractable nausea/ vomiting/ c difficile +- off abx now Hx of Problems?: No Male Hx: Denies:: Prostate Problems Scrotal Mass Testicular Surgery Skin History: Denies:: History Skin Disorders? Pressure Ulcers Hx Musculoskeletal Problems?: Yes Musculoskeletal History: Positive for:: Back Injury (scoliosis s/p surgical repair) Musculoskeletal Trauma (left hand ring finger mass- current admission problem) Denies:: Joint Replacement Hx of Psycho/Social Problems?: No Hx Surgeries?: Yes (cholecystectomy, back surgery) Hx Any Other Health Problems?: Yes Other History: Denies:: Cancer Thyroid Disease History Blood Transfusions: Positive for:: Blood Transfusions Denies:: Blood Transfuse Reaction Hx Diabetes: No Hx Alcohol Use: No (denies)Hx Substance Use: Yes (per EMR- pt + opiates, methamphetamines 11/09 admit, ED note + MJ 12/10) Smoking Status: Current Every Day Smoker Have You Smoked inLast 12 mo: Yes Stop/Bang P-Blood Pressure: treated: No B- Body Mass Index > 35 kg/m2: No A- Age over 50: No N- Neck Large Circumference: No G- Gender Male: Yes Risk Assessment Category Category 1A: Patient has history of documented sleep apnea, and HAS NOT received any narcotic, sedative or anesthesia administration during this stay. Category 1B: Patient has history of documented sleep apnea, and HAS received any narcotic , sedative or anesthesia administration during this stay Category 2: Patient has SUSPECTED Obstructive Sleep Apnea, and HAS received any narcotic , sedative or anesthesia administration during this stay. Category 3: Patient has SUSPECTED Obstructive Sleep Apnea and HAS NOT received narcotic, sedative or anesthesia administration during this stay. Category 4: Outpatient in Procedural Areas with known sleep apnea or who screen positive for High Risk via the STOP/BANG questionnaire. Exam Exam General Appearance: Alert, Oriented X3, Cooperative, No Acute Distress HEENT/AIRWAY: MP 1 Lungs: Normal Air Movement Heart: Regular Rate/Rhythm Plan Impression Patient chart reviewed, patient interviewed and anesthestic plan with risks, benefits, and alternatives discussed, and informed consent obtained. NPO per Anesth. Guidelines: Yes ASA Physical Status: ASA1 Normal Healthy Anesthetic Plan: GA Bene/Risks/Altern/Consents: Yes HP Complete Prior to Induction: Yes Fadi Landa MD Dec 23, 2016 09:15
[2016-12-23] MEDS: fentaNYL-PF 50 mCg/mL 2 mL Inj IVPUSH PRN ×2 (11:25→11:38)
--- NOTE | 2016-12-23 13:43 | PCM.ANEP1 ---
Post Anesthesia PACU Phase 1 Assessment Vital Signs Vital Signs Date Time Temp Pulse Resp B/P Pulse Ox O2 Delivery O2 Flow Rate FiO2 12/23/16 12:13 85 16 112/80 98 Room Air 12/23/16 11:47 78 16 111/81 95 Room Air 12/23/16 11:40 75 14 120/76 95 Room Air 12/23/16 11:25 76 12 126/86 98 Room Air 12/23/16 11:20 83 14 114/81 100 Simple Mask 10 12/23/16 11:15 75 13 104/73 99 Simple Mask 10 12/23/16 11:10 36.9 68 15 139/68 98 Simple Mask 10 12/23/16 09:16 36.3 78 14 133/78 100 Room Air Anesthetic Administered: GA Level of Alertness: Awake, talking Pain: No Nausea or Vomiting: No CV Function & Hydration Stable: Yes Airway Device: Oralpharangeal Airway Lungs: Normal Air Movement PACU Phase 2 Assessment Complications: No Follow up Care: N/A Patient Instructions Provided: N/A Fadi Landa MD Dec 23, 2016 13:43
--- NOTE | 2016-12-25 12:03 | OP ---
[address] [address] OPERATIVE REPORT PATIENT: RACHEL BULLOCK : 1975 MR#: [id number] ADMIT: 12/23/2016 JOB ID: [id number] DATE OF SURGERY: 12/23/2016 PREOPERATIVE DIAGNOSIS(ES): Left palmar mass. POSTOPERATIVE DIAGNOSIS(ES): A 2.5 cm left palmar mass that is the deep and adherent to the flexor apparatus. PROCEDURE: Excision of deep left palmar mass, 2.5 cm. SURGEON: Keith Gary M.D. TRACTOR OPERATOR HELPER: None. ANESTHESIA: General anesthesia. COMPLICATIONS: None apparent. SPECIMEN: Left palmar mass to Pathology. INDICATIONS FOR PROCEDURE: This is a 41-year-old male patient with a slowly enlarging left palmar mass. At this point, excision is indicated for tissue diagnosis. PROCEDURE AND FINDINGS: The patient was identified in the preoperative area. Surgical site was marked. The patient was then taken back to the operating room and placed supine on the operating table. Appropriate time-outs were taken. General anesthesia was induced smoothly. The patient was then prepped and draped in the usual sterile manner. It was noted that patient has a fairly large palmar mass over the MP joint of the ring finger ray. The border of the mass was marked. The patient's left upper extremity was then exsanguinated and tourniquet inflated to 250 mmHg. A Maritza incision was then made directly over this mass with a #15 blade. I then deepened the incision down to the mass which appeared to be a thick walled cyst. I then dissected the mass free from the surrounding soft tissue. The mass was fairly adherent to the superficial palmar fascia in this area. Significant care was done to separate the mass away from the fascia. This mass proceeded to dive deep down and was quite adherent to the flexor sheath. During this process, I entered the mass and what appears to be whitish, cloudy and particulate fluid/suspension came out. The sac wall was then completely dissected sharply and bluntly off of the flexor sheath with a pair of tenotomy scissors. This allowed the mass to be passed off to Pathology as a specimen. This area was then examined. There was no obvious residual cyst wall. The ulnar and radial digital nerve was found and traced and was intact throughout the surgical site. The area was irrigated with copious amounts of saline solution. Marcaine was infiltrated to the surgical site for postoperative pain. The incision was then reapproximated using several 4-0 nylon horizontal mattress sutures. The patient tolerated the procedure well. Needle count, sponge count, instrument counts were correct at the end of the procedure. The patient was extubated and transported to recovery in stable condition.
--- NOTE | 2016-12-30 16:18 | PATH ---
SURGICAL PATHOLOGY Attending Physician:Keith Gary CASE STATUS: Signed Out PATIENT NAME: FRIEND, RACHEL Germain PID: [id number] : 1975 DATE COLLECTED:12/23/2016 00:00 SPECIMEN: Soft Tissue Mass, Biopsy CLINICAL HISTORY: LEFT RING FINGER MASS 1). LEFT PALMAR MASS FINAL DIAGNOSIS: 1.LEFT PALMAR MASS, EXCISION: - SKIN AND SUBCUTANEOUS TISSUE WITH RUPTURED EPIDERMAL INCLUSION CYST. - SURROUNDING ACUTE AND CHRONIC INFLAMMATION, GRANULATION TISSUE, AND FOREIGN BODY-TYPE GIANT CELL REACTION. - NO EVIDENCE OF MALIGNANCY. [id number] GROSS DESCRIPTION: The specimen is received in one formalin filled container labeled with the patient's name, sublabeled "left palmar mass" and consists of a holman-hill portion of skin and friable tissue which measures 1.2 x 1.0 x 2.0 CM. The specimen is inked blue. The specimen is sectioned into 3 pieces and entirely submitted in 3 cassettes. 12/24/2016DC MICRO DESCRIPTION: See diagnosis. ICD-9 CODES: CPT CODES: 1: 76162 Electronically Signed Out Abdulaziz Gomez MD [facility] Pathology [facility] [address], [place] [address] Technical component performed at [facility], [address] [place] [address] Ave[address], [place], [address]
== END | disposition home or self-care (01) ==
LOC: SAS 08:58
PROVIDERS: ATTEND Plastic Surgery
PROC: 0JBK0ZZ Excision of Left Hand Subcutaneous Tissue and Fascia, Open Approach (ICD-10-PCS; principal; 2016-12-23 11:00)
DX: L72.0 Epidermal cyst (principal)
CPT/HCPCS: 26111; 88307; J0690; J1100; J1170; J2405; J2704; J3010; J7120